=== PATIENT | female | born 2000 | race African-American/Black ===

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

== ENCOUNTER 2021-01-22 10:39 | Emergency (ER) | payer OTHER ==
[2021-01-22] MEDS ORDERED: Ibuprofen 200 MG TAB ONE (11:28)
[2021-01-22] MEDS ORDERED: Cyclobenzaprine 10 MG TAB ONE (11:29)
== END 2021-01-22 11:54 | disposition home or self-care (01) ==
LOC: ERS 10:39
DX: S39.012A Strain of muscle, fascia and tendon of lower back, initial encounter (principal); V49.9XXA Car occupant (driver) (passenger) injured in unspecified traffic accident, initial encounter
CPT/HCPCS: 99283

== ENCOUNTER 2021-02-12 15:54 | Emergency (ER) | payer OTHER ==
[2021-02-12] MEDS ORDERED: Ibuprofen 200 MG TAB ONE (16:21)
== END 2021-02-12 17:11 | disposition home or self-care (01) ==
LOC: ERS 15:54
DX: M93.261 Osteochondritis dissecans, right knee (principal)

== ENCOUNTER 2021-07-10 17:27 | Emergency (ER) | payer OTHER ==
[2021-07-10] MEDS ORDERED: Acetaminophen 325 MG TAB ONE (18:18)
[2021-07-10] MEDS ORDERED: Ibuprofen 200 MG TAB ONE (18:18)
== END 2021-07-10 19:14 | disposition home or self-care (01) ==
LOC: ERS 17:27
DX: S62.313A Displaced fracture of base of third metacarpal bone, left hand, initial encounter for closed fracture (principal); W22.01XA Walked into wall, initial encounter
CPT/HCPCS: 26600

== ENCOUNTER 2022-07-02 13:26 | Emergency (ER) | payer OTHER ==
[2022-07-02] MEDS ORDERED: Ibuprofen 200 MG TAB ONE (14:51)
== END 2022-07-02 16:30 | disposition home or self-care (01) ==
LOC: ERS 13:26
DX: B34.9 Viral infection, unspecified (principal); Z20.822 Contact with and (suspected) exposure to COVID-19
CPT/HCPCS: 87804; 94640; J7620; U0003; U0005

== ENCOUNTER 2024-03-04 08:06 | Emergency (ER) | payer OTHER, SELFPAY ==
[2024-03-04] MEDS ORDERED: Ipratropium Bromide 2.5 ml Neb ONE ×2 (08:55→11:38)
[2024-03-04] MEDS ORDERED: Albuterol 2.5 MG (3 mL) NEB ONE (08:55)
[2024-03-04 09:22] LABS: Influenza A by NAA Not Detected (NotDetected); Influenza B by NAA Not Detected (NotDetected); SARS-CoV-2 NAA Rapid Test Not Detected (NotDetected)
[2024-03-04] MEDS ORDERED: predniSONE 20 MG TAB ONE (11:13)
[2024-03-04] MEDS ORDERED: Albuterol 2.5 MG (0.5 mL) NEB ONE (11:37)
== END 2024-03-04 12:29 | disposition home or self-care (01) ==
LOC: ERS 08:06
DX: J98.01 Acute bronchospasm (principal); F17.290 Nicotine dependence, other tobacco product, uncomplicated
CPT/HCPCS: 71045; 94640; J7512; J7611